=== PATIENT | female | born 1975 | race African-American/Black ===

== ENCOUNTER 2018-12-20 00:46 | Emergency (ER) | payer BC ==
[~2018-12-20] VITALS: Ht 167.6 cm; Wt 115.2 kg
[2018-12-20 00:52] VITALS: BP 127/88
--- NOTE | 2018-12-20 00:54 | NUR ---
PT AMBULATED TO BED 9
--- NOTE | 2018-12-20 00:56 | NUR ---
PT CAME TO ER C/O VOMITING AND DIARRHEA. PT STATES "I VOMITED LIKE OVER 20 TIMES." PER PT SHE ATE TACOS AROUND 2230 AND THATS WHEN SHE HAD N/V/D. PT PAIN LEVEL 10/10 EPIGASTRIC PAIN WITH CRAMPING. NKA. NO MED HX. SAFETY MEASURES IN PLACE. WAITING FOR ERMD TO EVALUATE PT.
[2018-12-20] MEDS ORDERED: ONDANSETRON 4 MG/2 ML VIAL IVP ONE (01:00)
[2018-12-20] MEDS ORDERED: NACL 0.9% 1,000 ML IV ONE (01:00)
[2018-12-20] MEDS ORDERED: KETOROLAC 30 MG/ML VIAL IVP ONE (01:00)
[2018-12-20 01:19] LABS: BASOPHILS % (AUTO) 0.3 % (0.0-2.0); EOSINOPHILS # (AUTO) 0.1 K/uL (0-0.4); EOSINOPHILS % (AUTO) 0.8 % (0.0-4.0); HEMATOCRIT 44.3 % (36-48); HEMOGLOBIN 15.3 g/dL (12.0-16.0); LYMPHOCYTES # (AUTO) 4.1 K/uL (2.5-16.5); LYMPHOCYTES % (AUTO) 25.1 % (20.5-51.1); MEAN CORPUSCULAR HEMOGLOBIN 35 pg (27-31); MEAN CORPUSCULAR HGB CONC 35 g/dL (33-37); MEAN CORPUSCULAR VOLUME 100.2 fL (80-94); MONOCYTES # (AUTO) 1.2 K/uL (0.8-1.0); MONOCYTES % (AUTO) 7.2 % (1.7-9.3); NEUTROPHILS # (AUTO) 10.8 K/uL (1.8-7.7); NEUTROPHILS % (AUTO) 66.6 % (42.2-75.2); PLATELET COUNT (AUTO) 431 K/uL (140-450); RED BLOOD CELL COUNT(AUTO) 4.42 MIL/uL (4.20-5.40); RED CELL DISTRIBUTION WIDTH 13.7 % (11.6-13.7); WHITE BLOOD COUNT (AUTO) 16.2 K/uL (4.8-10.8)
--- NOTE | 2018-12-20 01:25 | NUR ---
PT STATES NAUSEA WENT AWAY AND CURRENT PAIN LEVEL 5/10.
[2018-12-20 01:35] LABS: ALBUMIN 3.8 g/dL (3.4-5.0); ANION GAP 20.7 (8-16); ASPARTATE AMINOTRANSFERASE 29 U/L (15-37); CARBON DIOXIDE 18.3 mmol/L (21-32); CHLORIDE 102 mmol/L (98-107); CREATININE 1.2 mg/dL (0.6-1.3); GFR ARICAN-AMERICAN 63 mL/min (>90); GLUCOSE 182 mg/dL (74-106); SODIUM SERUM 138 mmol/L (136-145); TOTAL BILIRUBIN 0.2 mg/dL (0.0-1.0); UREA NITROGEN, BLOOD 14 mg/dL (7-18)
[2018-12-20] MEDS ORDERED: POTASSIUM CHLORIDE 10 MEQ TABER PO ONE (01:45)
--- NOTE | 2018-12-20 02:23 | NUR ---
PT LEFT TO XRAY VIA WHEELCHAIR
--- NOTE | 2018-12-20 02:32 | NUR ---
PT RETURNED FROM X-RAY VIA WHEELCHAIR
[2018-12-20 02:47] VITALS: BP 127/88
--- NOTE | 2018-12-20 02:47 | NUR ---
Patient discharged with v/s stable. Written and verbal after care instructions given and explained. Pt encouraged to eat BRAT diet and drink plenty of fluids. Patient alert, oriented and verbalized understanding of instructions. Ambulatory with steady gait. All questions addressed prior to discharge. ID band removed. Patient advised to follow up with PMD. Rx of ZOFRAN AND TRAMADOL was given. Patient educated on indication of medication including possible reaction and side effects. Opportunity to ask questions provided and answered.
== END 2018-12-20 02:46 | disposition home or self-care (01) ==
LOC: MED 00:46
DX: T62.8X1A Toxic effect of other specified noxious substances eaten as food, accidental (unintentional), initial encounter (principal); K52.1 Toxic gastroenteritis and colitis; Y92.89 Other specified places as the place of occurrence of the external cause
CPT/HCPCS: 36415; 74022; 80053; 85025; 96361; 96374; 96375; 99284; J1885; J2405; J7030; Q0092

== ENCOUNTER 2021-04-27 15:48 | Emergency (ER) | payer BC ==
[~2021-04-27] VITALS: Ht 170.2 cm; Wt 105.2 kg
[2021-04-27 17:02] VITALS: BP 133/102
[2021-04-27 18:03] LABS: BASOPHILS # (AUTO) 0.1 K/uL (0.00-0.22); BASOPHILS % (AUTO) 0.8 % (0.0-2.0); EOSINOPHILS # (AUTO) 0.1 K/uL (0-0.4); EOSINOPHILS % (AUTO) 0.8 % (0.0-4.0); HEMATOCRIT 40.7 % (36-48); HEMOGLOBIN 14.1 g/dL (12.0-16.0); LYMPHOCYTES # (AUTO) 3.6 K/uL (2.5-16.5); MEAN CORPUSCULAR HEMOGLOBIN 36 pg (27-31); MEAN CORPUSCULAR HGB CONC 35 g/dL (33-37); MEAN CORPUSCULAR VOLUME 103.9 fL (80-94); MONOCYTES # (AUTO) 0.6 K/uL (0.8-1.0); MONOCYTES % (AUTO) 7.9 % (1.7-9.3); NEUTROPHILS # (AUTO) 3.8 K/uL (1.8-7.7); NEUTROPHILS % (AUTO) 46.5 % (42.2-75.2); PLATELET COUNT (AUTO) 366 K/uL (140-450); RED BLOOD CELL COUNT(AUTO) 3.92 MIL/uL (4.20-5.40); RED CELL DISTRIBUTION WIDTH 13.9 % (11.6-13.7); WHITE BLOOD COUNT (AUTO) 8.2 K/uL (4.8-10.8)
[2021-04-27 18:24] LABS: PROTHROMBIN TIME 9.8 secs (10.8-13.4)
[2021-04-27 18:26] LABS: ALBUMIN 3.5 g/dL (3.4-5.0); ANION GAP 12.7 (8-16); CARBON DIOXIDE 24.2 mmol/L (21-32); POTASSIUM 3.9 mmol/L (3.5-5.1); TOTAL BILIRUBIN 0.3 mg/dL (0.0-1.0)
[2021-04-27] MEDS ORDERED: ACET-10509 PO (20:07)
--- NOTE | 2021-04-27 20:35 | NUR ---
PT DISCHARGED BY DR. HARRELL. ALL INSTRUCTIONS GIVEN BY DR. HARRELL. RX OF TYLENOL PROVIDED.
== END 2021-04-27 20:35 | disposition home or self-care (01) ==
LOC: MED 15:48
DX: R07.89 Other chest pain (principal); F41.9 Anxiety disorder, unspecified; E83.51 Hypocalcemia; Z79.899 Other long term (current) drug therapy
CPT/HCPCS: 36415; 70450; 71045; 80053; 83880; 84484; 85025; 85610; 85730; 93005; 99285